=== PATIENT | female | born 1965 | race Two or more races ===

== ENCOUNTER 2018-08-25 12:15 | Emergency (ER) | payer MEDICAID ==
[~2018-08-25] VITALS: Ht 152.4 cm; Wt 104.9 kg
[2018-08-25 13:28] VITALS: BP 170/95
[2018-08-25] MEDS ORDERED: KETOROLAC TROMETH 60MG/2ML VIAL IM ONE (13:45)
== END 2018-08-25 14:30 | disposition home or self-care (01) ==
LOC: ER 12:15
DX: S29.012A Strain of muscle and tendon of back wall of thorax, initial encounter (principal); Z98.51 Tubal ligation status; X50.1XXA Overexertion from prolonged static or awkward postures, initial encounter; Y93.B9 Activity, other involving muscle strengthening exercises; Y92.39 Other specified sports and athletic area as the place of occurrence of the external cause; Y99.8 Other external cause status
CPT/HCPCS: 93005; 96372; 99283; J1885